=== PATIENT | female | born 1955 | race Two or more races ===

== ENCOUNTER 2020-06-14 18:57 | Emergency (ER) | payer OTHER ==
[2020-06-14 19:12] VITALS: BP 160/75; PULSE 75
[2020-06-14] MEDS ORDERED: Ketorolac 60 MG/2 ML SDV IM ONE (19:32)
--- NOTE | 2020-06-14 20:08 | EDM.PDOC ---
ED HPI GENERAL MEDICAL PROBLEM - General Chief Complaint: Back Pain or Injury Stated Complaint: PAIN IN LEFT LOWER BACK Time Seen by Provider: 06/14/20 19:12 Source of Information: Reports: Patient History Limitations: Reports: No Limitations - History of Present Illness INITIAL COMMENTS - FREE TEXT/NARRATIVE: She is a 65-year-old female who presents with complaints of right lower back pain that started 2 days ago. She states she was sitting in the car and turned to reach to help her mom and felt a pull. Since that time she has had spasm in her right lower back. States that she has have a history of back problems and has had problems like this in the past. She is taken muscle relaxers in the past which have helped. She does not feel that she needs an x-ray done as she does not think she broke anything. Nuys any bowel or bladder dysfunction. Denies any numbness or tingling down her legs. Treatments [employer]: Reports: Acetaminophen, Cold Therapy, Heat Therapy Left Lower Back Pain Score (Numeric/FACES): 8 - Related Data Allergies Allergy/AdvReac Type Severity Reaction Status Date / Time bee pollen Allergy Other Verified 06/14/20 19:12 Penicillins Allergy Swelling Verified 06/14/20 19:12 Home Meds: Home Meds Albuterol Sulfate [Albuterol Sulfate HFA] 1 puff INH ASDIRECTED PRN 05/06/15 [History] EPINEPHrine [Epipen] 0.3 ml SUBCUT ASDIRECTED PRN 05/06/15 [History] Cyclobenzaprine [Flexeril] 5 mg PO Q8H PRN #10 tab 06/14/20 [Rx] Naproxen [Naprosyn] 500 mg PO Q12HR PRN #10 tab 06/14/20 [Rx] Past Medical History - Past Health History Medical/Surgical History: Denies Medical/Surgical History HEENT History: Reports: Impaired Vision Psychiatric History: Reports: Depression - Past Surgical History Musculoskeletal Surgical History: Reports: Shoulder Surgery Other Musculoskeletal Surgeries/Procedures:: rigt shoulder surgery Social & Family History - Tobacco Use Smoking Status *Q: Never Smoker - Caffeine Use Caffeine Use: Reports: None - Recreational Drug Use Recreational Drug Use: No ED ROS GENERAL - Review of Systems Review Of Systems: See Below Constitutional: Reports: No Symptoms HEENT: Reports: No Symptoms Respiratory: Reports: No Symptoms Cardiovascular: Reports: No Symptoms Endocrine: Reports: No Symptoms GI/Abdominal: Reports: No Symptoms : Reports: No Symptoms Musculoskeletal: Reports: Back Pain, Muscle Stiffness Skin: Reports: No Symptoms Neurological: Reports: No Symptoms Psychiatric: Reports: No Symptoms Hematologic/Lymphatic: Reports: No Symptoms Immunologic: Reports: No Symptoms ED EXAM,LOWER BACK PAIN/INJURY - Physical Exam Exam: See Below General Appearance: Alert, WD/WN, No Apparent Distress Respiratory/Chest: No Respiratory Distress, Lungs Clear, Normal Breath Sounds, No Accessory Muscle Use, Chest Non-Tender Cardiovascular: Normal Peripheral Pulses, Regular Rate, Rhythm, No Edema, No Gallop, No JVD, No Murmur, No Rub Back Exam: Normal Inspection, Muscle Spasm, Paraspinal Tenderness (Right lumbar down to SI joint), Vertebral Tenderness (L3-5) Neurological: Alert, Normal Mood/Affect, Normal Dorsiflexion, CN II-XII Intact, Normal Plantar Flexion, Normal Gait, Normal Reflexes, No Motor/Sensory Deficits, Oriented x 3 Psychiatric: Normal Affect, Normal Mood Skin Exam: Warm, Dry, Intact, Normal Color, No Rash Course - Vital Signs Last Recorded V/S: Last Vital Signs Temp 97.1 F 06/14/20 19:07 Pulse 75 06/14/20 19:07 Resp 18 06/14/20 19:07 BP 160/75 H 06/14/20 19:07 Pulse Ox 98 06/14/20 19:07 - Orders/Labs/Meds Meds: Medications Discontinued Medications Generic Name Dose Route Start Last Admin Trade Name Freq PRN Reason Stop Dose Admin Ketorolac Tromethamine 60 mg 06/14/20 19:32 06/14/20 19:53 Toradol IM 06/14/20 19:33 60 mg ONETIME ONE Administration - Re-Assessments/Exams Free Text/Narrative Re-Assessment/Exam: 06/14/20 20:30 On exam, patient does have significant muscle spasms and tenderness throughout the right lumbar paraspinal muscles into the SI joint. I am in agreement with her that x-ray is not necessary as she did not have any trauma to the back. Discussed treatment options with her. She drove here, therefore she does not want to receive Flexeril in the ER, she however she would be open to a prescription for it. We will give her Toradol 60 mg IM. I will send a prescription for Flexeril and Naprosyn to [facility] in [place]. Also provider note off from work till Saturday. Charge instructions as documented. Departure - Departure Time of Disposition: 20:31 Disposition: Home, Self-Care 01 Condition: Good Clinical Impression: Low back pain Qualifiers: Chronicity: acute Back pain laterality: right Sciatica presence: without sciatica Qualified Code(s): M54.5 - Low back pain - Discharge Information *PRESCRIPTION DRUG MONITORING PROGRAM REVIEWED*: No *COPY OF PRESCRIPTION DRUG MONITORING REPORT IN PATIENT TABATHA: No Prescriptions: Cyclobenzaprine [Flexeril] 5 mg PO Q8H PRN #10 tab PRN Reason: Muscle Spasm Naproxen [Naprosyn] 500 mg PO Q12HR PRN #10 tab PRN Reason: Pain Instructions: Acute Back Pain, Adult Referrals: PCP,Not In Area [Primary Care Provider] - Forms: ED Department Discharge, ED Return to Work/School Form Additional Instructions: Were seen in the emergency department today for right-sided low back pain after straining your muscles. While in the ER you received an injection of Toradol. A prescription for Flexeril and Naprosyn has been sent to [facility]. His medications as prescribed. You may continue to use ice and heat as tolerated. A note has been provided off for you from work until Saturday. Return to the ER as needed. Sepsis Event Note (ED) - Evaluation Sepsis Screening Result: No Definite Risk - Focused Exam Vital Signs: Vital Signs Temp Pulse Resp BP Pulse Ox 06/14/20 19:07 97.1 F 75 18 160/75 H 98
== END 2020-06-14 21:04 | disposition home or self-care (01) ==
LOC: JD.ED 18:57
DX: M54.5 Low back pain (principal); Z91.030 Bee allergy status; Z88.0 Allergy status to penicillin
CPT/HCPCS: 96372; 99283; J1885